=== PATIENT | female | born 1970 | race Caucasian/White ===

== ENCOUNTER 2019-01-10 19:55 | Emergency (ER) | payer SELFPAY ==
--- NOTE | 2019-01-10 19:58 | ERPHSYRPT ---
- History of Present Illness Time Seen by Provider: 01/10/19 19:58 Source: patient Exam Limitations: no limitations Physician History: 48 y/o white female presents with left lateral chest wall rash in a band like fashion for 1 day. pain is worsening and rash becoming more red. pt states acyclovir works well for her. pt has h/o recurrent shingle outbreaks. sx exactly the same Timing/Duration: yesterday, worse Quality: burning, painful Severity: moderate Location: other (left lateral chest wall) Possible Causes: other (shingles) Associated Symptoms: rash Allergies/Adverse Reactions: tramadol [From [place]] Allergy (Verified 01/10/19 20:16) anaphylaxis Home Medications: Aspirin 81 gm Chew [Baby Aspirin 81 mg Chew] 81 mg PO DAILY 01/10/19 [ History] Carvedilol 6.25 mg [Coreg 6.25 MG] 0.5 tab PO BID 01/10/19 [History] Gabapentin 300 mg PO TID 01/10/19 [History] - Review of Systems Constitutional: No Symptoms Eyes: No Symptoms Ears, Nose, & Throat: No Symptoms Respiratory: No Symptoms Cardiac: No Symptoms Abdominal/Gastrointestinal: No Symptoms Genitourinary Symptoms: No Symptoms Musculoskeletal: No Symptoms Skin: No Symptoms, Rash (painful red) Neurological: No Symptoms Psychological: No Symptoms Endocrine: No Symptoms Hematologic/Lymphatic: No Symptoms Immunological/Allergic: No Symptoms All Other Systems: Reviewed and Negative - Past Medical History Neurological History: No Pertinent History ENT History: No Pertinent History Cardiac History: No Pertinent History Respiratory History: No Pertinent History Endocrine Medical History: No Pertinent History Musculoskeletal History: No Pertinent History GI Medical History: No Pertinent History History: No Pertinent History Psycho-Social History: No Pertinent History Female Reproductive Disorders: No Pertinent History - Past Surgical History Neuro Surgical History: No Pertinent History Cardiac: No Pertinent History Respiratory: No Pertinent History Gastrointestinal: No Pertinent History Genitourinary: No Pertinent History Musculoskeletal: No Pertinent History Female Surgical History: No Pertinent History - Nursing Vital Signs Nursing Vital Signs: Initial Vital Signs Temperature 98.4 F 01/10/19 20:00 Pulse Rate 97 H 01/10/19 20:00 Respiratory Rate 18 01/10/19 20:00 Blood Pressure 129/77 01/10/19 20:00 O2 Sat by Pulse Oximetry 100 01/10/19 20:00 Pain Scale Pain Intensity 6 - Physical Exam General Appearance: no apparent distress, alert, anxiety Eye Exam: PERRL/EOMI Ears, Nose, Throat Exam: normal ENT inspection, moist mucous membranes Neck Exam: normal inspection Respiratory Exam: normal breath sounds Cardiovascular Exam: regular rate/rhythm Gastrointestinal/Abdomen Exam: soft Pelvic Exam: not done Rectal Exam: not done Back Exam: normal inspection, normal range of motion, No CVA tenderness, No vertebral tenderness Extremity Exam: normal inspection, normal range of motion, pelvis stable Neurologic Exam: alert, oriented x 3, cooperative, forging engineer II-XII nml as tested Skin Exam: rash (painful red horizontally oriented band. left lateral chest wall ) Lymphatic Exam: No adenopathy SpO2 Interpretation: normal O2 Delivery: Room Air - Course Nursing assessment & vital signs reviewed: Yes - Progress Progress: unchanged Counseled pt/family regarding: diagnosis, need for follow-up, rad results - Departure Departure Disposition: Home Clinical Impression: Shingles rash Condition: Stable Critical Care Time: No Additional Instructions: keep site clean daily. follow up with primary doctor for worsening or persistent symptoms Prescriptions: Acyclovir 800 mg [Zovirax 800 mg] 800 mg PO 5XD #35 cap Oxycodone HCl/Acetaminophen [Percocet 5-325 mg Tablet] 1 each PO Q8H PRN #6 tablet MDD 3 PRN Reason: Pain
[2019-01-10] MEDS ORDERED: ZOVIRAX 800 MG PO ONE (20:51)
[2019-01-10] MEDS ORDERED: ZOVIRAX 200 MG ONE (20:52)
[2019-01-10 21:01] VITALS: BP 111/80; O2SAT 98
[2019-01-10 21:02] VITALS: PULSE 76
== END 2019-01-10 21:00 | disposition home or self-care (01) ==
LOC: ED 19:55
DX: B02.9 Zoster without complications (principal)
CPT/HCPCS: 99283; A9270-GY